=== PATIENT | male | born 1970 | race Caucasian/White ===

== ENCOUNTER 2016-10-02 12:29 | Emergency (ER) | payer OTHER ==
[2016-10-02 12:41] VITALS: O2SAT 100
[2016-10-02] MEDS ORDERED: ATARAX 25 MG PO ONE (13:19)
--- NOTE | 2016-10-02 13:19 | ERPHSYRPT ---
- History of Present Illness Time Seen by Provider: 10/02/16 13:05 Source: patient Patient Subjective Stated Complaint: panic attacks Triage Nursing Assessment: panic attacks for past 5 days. feelings of sob. took chantix for 12 days--stopped taking on monday due to severe symptoms of side effects of chantix. states in past 24 hours he has had 4 panic attacks. states has had congestion and dry nasal passages. withdraw from methadone--last dose Physician History: PATIENT WITH HISTORY OF OPIATE DEPENDENCY FOR PERIPHERAL NEUROPATHY, STATES METHADONE RAN OUT Jul, ALSO HAS BEEN HAVING PAINIC ATTACKS SINCE HE DISCONTINUED CHANTIX. HAS NO RELIEF OF PANIC ATTACKS WHILE TAKING HIS XANAX. HE DENIES SUICIDAL OR HOMOCIDAL THOUGHTS. STATES HE DISCONTINUED HIS NEUROTIN DUE TO SIDE EFFECTS OF SEDATION. PATIENT ALSO COMPLAINS OF ABDOMINAL BLOATING. Timing/Duration: day(s) Severity of Symptoms-Max: moderate Severity of Symptoms-Current: moderate Context related to: other (MEDICATIONS) Suicidal thoughts: other (NONE) Associated Symptoms: anxiety Previous symptoms: same symptoms as today Allergies/Adverse Reactions: No Known Drug Allergies Allergy (Unverified 10/02/16 12:55) Home Medications: Alprazolam 1 mg [Xanax 1 mg] 1 mg PO TID 08/11/16 [History] Clonidine HCl 0.1 mg [Catapres 0.1 MG] 0.1 mg PO TID 08/11/16 [History] Lisinopril 40 mg PO DAILY 08/11/16 [History] Metoprolol Tartrate 50 mg [Lopressor 50 MG] 50 mg PO BID 08/11/16 [History ] Aspirin 81 mg PO DAILY 10/02/16 [History] Cyanocobalamin (Vitamin B-12) [Vitamin B12] 1,000 mcg PO DAILY 10/02/16 [History ] Doxazosin Mesylate 8 mg PO DAILY 10/02/16 [History] Mupirocin [Bactroban OINTMENT] 22 gm TP UD 10/02/16 [History] Oxycodone HCl/Acetaminophen [Percocet 10-325 mg Tablet] 1 each PO QID 10/02/16 [ History] Prednisone 10 mg [Deltasone 10 mg] 10 mg PO DAILY 10/02/16 [History] Varenicline Tartrate [Chantix] 1 mg PO BID 10/02/16 [History] Hx Tetanus, Diphtheria Vaccination/Date Given: Yes Hx Influenza Vaccination/Date Given: No Hx Pneumococcal Vaccination/Date Given: No Immunizations Up to Date: Yes - Past Medical History Pertinent Past Medical History: Yes Neurological History: Peripheral Neuropathy Cardiac History: Hypertension - Past Surgical History Past Surgical History: No - Social History Smoking Status: Former smoker Exposure to second hand smoke: Yes Drug Use: none Patient Lives Alone: No - Nursing Vital Signs Nursing Vital Signs: Initial Vital Signs Temperature 97.8 F Temperature Source Oral Pulse Rate 54 Respiratory Rate 18 Blood Pressure [Right Arm] 155/56 Pain Intensity 0 - Physical Exam General Appearance: no apparent distress Eyes, Ears, Nose, Throat Exam: normal ENT inspection, moist mucous membranes Neck Exam: normal inspection, non-tender, supple Respiratory Exam: normal breath sounds, lungs clear, No respiratory distress Cardiovascular Exam: regular rate/rhythm, No edema Gastrointestinal/Abdominal Exam: soft, normal bowel sounds, No tenderness, No distention Extremities Exam: normal inspection, normal range of motion, No evidence of injury, No edema Peripheral Pulses: carotid (R): 2+, carotid (L): 2+, femoral (R): 2+, femoral (L ): 2+, dorsalis-pedis (R): 2+ Current Suicidality: denies suicide plan, has suicide plan Neurological Exam: alert, account support associate II-XII nml as tested, oriented x 3 Appearance: appropriate appearance Behavior/Eye Contact/Speech: alert & cooperative Thoughts/Hallucinations: normal thought pattern, no apparent hallucination Skin Exam: normal color, warm, dry, No rash SpO2 Interpretation: normal SpO2: 100 Oxygen Delivery: Room Air - Radiology Exams Abdomen X-ray Interpretation: Interpreted by me (NO EVIDENCE OF BOWEL OBSTRUCTION, FREE AIR OR INFILTRATES) Ordered Tests: Active Orders 24 hr Category Date Time Status OBSTR/ACUTE ABDOMEN SERIES Stat Exams 10/02/16 13:58 Taken AMYLASE Stat Lab 10/02/16 13:20 Results CBC W DIFF Stat Lab 10/02/16 13:20 Completed CMP Stat Lab 10/02/16 13:20 Results Lactic Acid Urgent Lab 10/02/16 13:08 Stop Req UA W/ MICROSCOPIC Stat Lab 10/02/16 13:20 Completed Urine Triage Profile Stat Lab 10/02/16 13:20 Completed Medication Summary Discontinued Medications Generic Name Dose Route Start Last Admin Trade Name Yesenia PRN Reason Stop Dose Admin Hydroxyzine HCl 50 mg 10/02/16 13:19 10/02/16 13:24 Atarax 25 Mg PO 10/02/16 13:20 50 mg STAT ONE Administration Hydroxyzine HCl Confirm 10/02/16 13:24 Atarax 25 Mg Administered 10/02/16 13:25 Dose 50 mg .ROUTE .STK-MED ONE Lab/Rad Data: Laboratory Result Diagrams 10/02/16 13:20 10/02/16 13:20 Laboratory Results 10/02/16 10/02/16 10/02/16 Range/Units 13:20 13:20 13:20 WBC 9.5 (4.0-10.5) K/mm3 RBC 4.08 L (4.1-5.6) M/mm3 Hgb 12.9 (12.5-18.0) gm/dl Hct 37.8 L (42-50) % MCV 92.6 (78-100) fl MCH 31.6 (26-32) pg MCHC 34.1 (32-36) g/dl RDW 13.3 (11.5-14.0) % Plt Count 158 (150-450) K/mm3 MPV 9.5 (6-9.5) fl Gran % 69.7 H (36.0-66.0) % Lymphocytes % 21.9 L (24.0-44.0) % Monocytes % 7.4 (0.0-12.0) % Eosinophils % 0.7 (0.00-5.0) % Basophils % 0.3 (0.0-0.4) % Basophils # 0.03 (0-0.4) Sodium Pending Potassium Pending Chloride Pending Carbon Dioxide 29.0 (21-32) mEq/L Anion Gap Pending BUN 6 L (9-20) mg/dL Creatinine 1.30 (0.55-1.30) mg/dl Estimated GFR > 60 ML/MIN Glucose 132 H (70-110) MG/DL Calcium 9.1 (8.5-10.1) mg/dL Total Bilirubin 0.5 (0.2-1.0) mg/dL AST 25 (15-37) U/L ALT 25 (12-78) U/L Alkaline Phosphatase 82 (46-116) U/L Serum Total Protein 8.0 (6.4-8.2) gm/dL Albumin 3.7 (3.4-5.0) g/dL Amylase 46 (25-115) U/L Ur Collection Type Urine Color (YELLOW) Urine Appearance (CLEAR) Urine pH (5-6) Ur Specific [place] (1.005-1.025) Urine Protein (Negative) Urine Glucose (UA) (NEGATIVE) mg/dL Urine Ketones (NEGATIVE) Urine Nitrite (NEGATIVE) Urine Bilirubin (NEGATIVE) Urine Urobilinogen (0-1) mg/dL Urine WBC (Auto) (NEGATIVE) Urine RBC (Auto) (0-5) Jose Luis/ul Urine Microscopic RBC (0-2) /HPF Urine Bacteria (NEGATIVE) /HPF Urine Opiates Level NEG. (NEGATIVE) Ur Methadone NEG. (NEGATIVE) Urine Barbiturates NEG. (NEGATIVE) Ur Phencyclidine (PCP) NEG. (NEGATIVE) Urine Amphetamine NEG. (NEGATIVE) U Benzodiazepine Level POS. (NEGATIVE) Urine Cocaine NEG. (NEGATIVE) Urine Marijuana (THC) NEG. (NEGATIVE) Specimen Received 10/02/16 Range/Units 13:20 WBC (4.0-10.5) K/mm3 RBC (4.1-5.6) M/mm3 Hgb (12.5-18.0) gm/dl Hct (42-50) % MCV (78-100) fl MCH (26-32) pg MCHC (32-36) g/dl RDW (11.5-14.0) % Plt Count (150-450) K/mm3 MPV (6-9.5) fl Gran % (36.0-66.0) % Lymphocytes % (24.0-44.0) % Monocytes % (0.0-12.0) % Eosinophils % (0.00-5.0) % Basophils % (0.0-0.4) % Basophils # (0-0.4) Sodium Potassium Chloride Carbon Dioxide (21-32) mEq/L Anion Gap BUN (9-20) mg/dL Creatinine (0.55-1.30) mg/dl Estimated GFR ML/MIN Glucose (70-110) MG/DL Calcium (8.5-10.1) mg/dL Total Bilirubin (0.2-1.0) mg/dL AST (15-37) U/L ALT (12-78) U/L Alkaline Phosphatase (46-116) U/L Serum Total Protein (6.4-8.2) gm/dL Albumin (3.4-5.0) g/dL Amylase (25-115) U/L Ur Collection Type VOID Urine Color YELLOW (YELLOW) Urine Appearance CLEAR (CLEAR) Urine pH 7.0 (5-6) Ur Specific [place] 1.010 (1.005-1.025) Urine Protein NEGATIVE (Negative) Urine Glucose (UA) NEGATIVE (NEGATIVE) mg/dL Urine Ketones NEGATIVE (NEGATIVE) Urine Nitrite NEGATIVE (NEGATIVE) Urine Bilirubin NEGATIVE (NEGATIVE) Urine Urobilinogen 0.2 (0-1) mg/dL Urine WBC (Auto) NEGATIVE (NEGATIVE) Urine RBC (Auto) TRACE HEMOLYZED (0-5) Jose Luis/ul Urine Microscopic RBC 0-2 (0-2) /HPF Urine Bacteria RARE (NEGATIVE) /HPF Urine Opiates Level (NEGATIVE) Ur Methadone (NEGATIVE) Urine Barbiturates (NEGATIVE) Ur Phencyclidine (PCP) (NEGATIVE) Urine Amphetamine (NEGATIVE) U Benzodiazepine Level (NEGATIVE) Urine Cocaine (NEGATIVE) Urine Marijuana (THC) (NEGATIVE) Specimen Received 10/02/16 1320 - Progress Progress Note: 10/02/16 13:25 PATIENT GIVEN ATARAX 50MG ORALLY Counseled pt/family regarding: lab results, diagnosis, need for follow-up - Departure Time of Disposition: 14:35 Departure Disposition: Home Clinical Impression: ANXIETY REACTION Condition: Stable Critical Care Time: No Additional Instructions: CONTINUE ALL CURRENT MEDICATIONS DIRECTED. CONSULT DR CHRISTENSEN FOR MEDICATION ADJUSTMENT.
[2016-10-02] MEDS ORDERED: ATARAX 25 MG ONE (13:24)
[2016-10-02 13:26] LABS: BASOPHIL % 0.3 % (0.0-0.4); Eosinophil % 0.7 % (0.00-5.0); Granulocytes % 69.7 % (36.0-66.0); Lymphocytes % 21.9 % (24.0-44.0); Mean Cell Volume 92.6 fl (78-100); Mean Corpuscular Hemoglobin 31.6 pg (26-32); Mean Platelet Volume 9.5 fl (6-9.5); Monocytes % 7.4 % (0.0-12.0); Platelet Count 158 K/mm3 (150-450); Red Blood Count 4.08 M/mm3 (4.1-5.6); Red Cell Distribution Width 13.3 % (11.5-14.0); White Blood Count 9.5 K/mm3 (4.0-10.5)
[2016-10-02 13:28] LABS: COMPLETE URINE MICROSCOPIC? YES; Collection Type VOID
[2016-10-02 13:38] LABS: Bacteria RARE /HPF (NEGATIVE)
[2016-10-02 13:50] LABS: ALBUMIN 3.7 g/dL (3.4-5.0); ALKALINE PHOSPHATASE 82 U/L (46-116); BILIRUBIN,TOTAL 0.5 mg/dL (0.2-1.0); BLOOD UREA NITROGEN 6 mg/dL (9-20); Glucose 132 MG/DL (70-110); SGOT/AST 25 U/L (15-37); SGPT/ALT 25 U/L (12-78)
[2016-10-02 14:49] VITALS: BP 134/70; PULSE 76
[2016-10-02 17:46] LABS: CHLORIDE 106 mEq/L (98-107); Potassium 3.6 mEq/L (3.5-5.1); SODIUM 146 mEq/L (136-145)
[2016-10-02 17:51] LABS: ANION GAP 14.6 MEQ/L (5-15)
--- NOTE | 2016-10-02 20:49 | XRAY ---
Indication: Constipation and bloating. Comparison: None 2 views of the abdomen nonacute and nonobstructed with minimal colonic fecal debris. Solid organs unremarkable. Osseous structures intact with minimal degenerative changes of the spine and right hip. A few round sclerotic lesions overlie the right hip either bone islands versus gluteal calcified injection granulomas. Single frontal chest demonstrates normal heart and lungs. Bony thorax intact with mild spinal degenerative changes and old right clavicle fracture. Impression: Nonacute nonobstructed abdomen. Nonacute one view chest.
== END 2016-10-02 14:49 | disposition home or self-care (01) ==
LOC: ED 12:29
DX: F41.1 Generalized anxiety disorder (principal); I10 Essential (primary) hypertension; Z79.899 Other long term (current) drug therapy
CPT/HCPCS: 36415; 74022; 80053; 80307; 81000; 82150; 85025; 99284